=== PATIENT | female | born 1995 | race African-American/Black ===

== ENCOUNTER 2024-03-11 12:47 | Emergency (ER) | payer SELFPAY ==
[2024-03-11] VITALS (27 sets, daily range): BP systolic 112–141; BP diastolic 73–92; PULSE 82–105; RESP 12–23; TEMP 36.9; O2SAT 90–100
--- NOTE | 2024-03-11 12:50 | ECG_ITS ---
Test Date: 2024-03-11 13:07:38 Measurements Intervals [place] Rate: 88 P: 69 SD: 162 QRS: 64 QRSD: 90 T: 39 QT: 336 QTc: 407 Interpretive Statements SINUS RHYTHM WITH SINUS ARRHYTHMIA No previous ECG available for comparison Electronically Signed On 03-11-2024 13:35:54 CDT by Richard Stiles M.D.
[2024-03-11 13:06] LABS: BEDSIDEPREGUCG Negative (Negative)
[2024-03-11 13:13] LABS: Basophils Percent Auto 0.3 % (0.2-1.2); Eosinophils Percent Auto 0.1 % (0-4.4); Hematocrit 37.9 % (37.0-47.0); Hemoglobin 12.6 g/dL (12.0-15.0); Immature Granulocyte Absolute 0.02 K/mm3 (0.00-0.031); Immature Granulocyte Percent A 0.2 % (0-0.5); Lymphocytes Absolute Auto 2.42 K/mm3 (0.9-3.2); Lymphocytes Percent Auto 26.2 % (18.3-44.2); Mean Corpuscular HGB Conc 33.2 g/dl (32-36); Mean Corpuscular Hemoglobin 28.6 pg (26-34); Mean Corpuscular Volume 86.1 fl (80-100); Mean Platelet Volume 10.1 fl (7.4-10.4); Monocytes Absolute Auto 0.8 K/mm3 (0.1-0.6); Monocytes Percent Auto 8.6 % (2.6-8.5); Neutrophils Percent Auto 64.6 % (45.5-73.1); Platelet Count Result 289 k/mm3 (150-375); Red Cell Distribution Width 13.1 % (11.5-14.5); White Blood Count 9.3 K/mm3 (4.5-10.0)
[2024-03-11 13:16] LABS: Add Urine Microscopic? YES; Appearance Urine Clear (Clear); Bacteria Urine None Seen /hpf; Bilirubin Urine Negative (Negative); Blood Urine Negative (Negative); Color Urine Yellow (Yellow); Glucose Urine UA Negative (Negative); Ketones Urine 1+ mg/dL (Negative); Leukocyte Esterase Ur 2+ LEU/UL (Negative); Nitrate Urine Negative (Negative); Non Pathogenic Casts 0-2; Protein Urine Negative (Negative); RBC Urine 0-2 /hpf (0-2); Specific Grav Ur 1.022 (1.001-1.035); Squamous Epithelial Cell Urine None Seen /hpf (Few); Urobilinogen Urine 0.2 mg/dL (<2.0)
--- NOTE | 2024-03-11 13:21 | ED.GENADULT ---
HPI - General Adult General Chief complaint: Overdose Stated complaint: possible OD Time Seen by Provider: 03/11/24 12:51 History of Present Illness HPI narrative: 28-year-old female present to the emergency department for evaluation for an intentional ingestion with the intent of self-harm. Patient states that she had been drinking alcohol last night and due to increased life pressures and wanting to end the pain she states she took an unknown number ibuprofen. This morning with the patient woke up she called her mom and ultimately called EMS. Related Data Allergies Allergy/AdvReac Type Severity Reaction Status Date / Time No Known Allergies Allergy Verified 03/11/24 13:56 Review of Systems Review of Systems: All systems reviewed & are unremarkable except as noted in HPI and below PMFSH Social History Social History Substance use type: marijuana Exam Narrative: APPEARANCE: Well appearing, no pain, no distress, well-nourished. HEAD: normocephalic, atraumatic. EYES: PERRLA/EOMI, conjunctivae clear. NOSE: Normal no drainage EARS:TMS clear with good light reflex. THROAT: Pharynx clear, no exudate. NECK: Supple. No adenopathy, no masses. RESPIRATORY: Airway patent, respirations nonlabored. Clear to auscultation bilaterally, no rales, rhonchi, wheezing. CARDIOVASCULAR: Regular rate and rhythm without murmurs rubs or gallops. ABDOMINAL: Soft, nontender, nondistended, normal bowel sounds MUSCULOSKELETAL: Moves all extremities. Strength/ROM intact, No edema, No calf tenderness. NEURO: Alert. Cranial nerves II through XII intact. Grossly intact SKIN: Warm, dry. Normal Color PSYCHIATRIC: Tearful and remorseful affect Course Vital Signs Vital signs: Vital Signs Temperature 98.5 F 03/11/24 12:52 Pulse Rate 88 03/11/24 12:52 Respiratory Rate 16 03/11/24 12:52 Blood Pressure 112/73 03/11/24 12:52 Pulse Oximetry 95 03/11/24 12:52 Oxygen Delivery Room Air 03/11/24 12:52 Temperature 98.5 F 03/11/24 12:52 Pulse Rate 85 03/11/24 17:30 Respiratory Rate 15 03/11/24 17:30 Blood Pressure 130/84 03/11/24 16:01 Pulse Oximetry 100 03/11/24 17:30 Oxygen Delivery Room Air 03/11/24 12:52 Medical Decision Making MDM Narrative Medical decision making narrative: Patient is medically cleared to be evaluated by crisis. Patient is medically cleared for transport and inpatient psychiatric treatment as needed. Patient was evaluated by crisis and they felt that she could be discharged home. Vital Signs Vital Signs: Vital Signs Temperature 98.5 F 03/11/24 12:52 Pulse Rate 88 03/11/24 12:52 Respiratory Rate 16 03/11/24 12:52 Blood Pressure 112/73 03/11/24 12:52 Pulse Oximetry 95 03/11/24 12:52 Oxygen Delivery Room Air 03/11/24 12:52 Temperature 98.5 F 03/11/24 12:52 Pulse Rate 85 03/11/24 17:30 Respiratory Rate 15 03/11/24 17:30 Blood Pressure 130/84 03/11/24 16:01 Pulse Oximetry 100 03/11/24 17:30 Oxygen Delivery Room Air 03/11/24 12:52 Lab Data 03/11/24 13:01 03/11/24 13:01 Labs: Lab Results 03/11/24 03/11/24 03/11/24 Range/Units 13:01 13:04 14:49 WBC 9.3 (4.5-10.0) K/mm3 RBC 4.40 (4.2-5.4) M/mm3 Hgb 12.6 (12.0-15.0) g/dL Hct 37.9 (37.0-47.0) % MCV 86.1 (80-100) fl MCH 28.6 (26-34) pg MCHC 33.2 (32-36) g/dl RDW 13.1 (11.5-14.5) % Plt Count 289 (150-375) k/mm3 MPV 10.1 (7.4-10.4) fl Immature Gran % (Auto) 0.2 (0-0.5) % Neut % (Auto) 64.6 (45.5-73.1) % Lymph % (Auto) 26.2 (18.3-44.2) % [place] % (Auto) 8.6 H (2.6-8.5) % Eos % (Auto) 0.1 (0-4.4) % Baso % (Auto) 0.3 (0.2-1.2) % Lymph # (Auto) 2.42 (0.9-3.2) K/mm3 [place] # (Auto) 0.8 H (0.1-0.6) K/mm3 Eos # (Auto) 0.0 (0-0.3) K/mm3 Baso # (Auto) 0.0 (0.0-0.1) K/mm3 Abs Immat Gran (auto) 0.02 (0.00-0.031) K/mm3 Absolute Neuts (auto) 6.0 (
--- NOTE | 2024-03-11 13:22 | PC.NURSE ---
Spoke with [place] [facility], Nadine RN, about pt taking unknown amount of OTC Ibuprofen. States watch for S/S of nausea nad vomiting for moderate amount - obtunded and metabolic acidosis for large amount. If lab work ok and pt shows no signs and symptoms, observe for 2 hours.
[2024-03-11 13:25] LABS: Acetaminophen < 10 ug/mL (10-30); Alanine Aminotransferase 17 U/L (6-35); Albumin Level 4.5 g/dL (3.5-5.1); Alkaline Phosphatase 63 U/L (38-126); Anion Gap 16 mmol/L (4-12); Aspartate Amino Transferase 28 U/L (14-36); Bilirubin,Total 0.5 mg/dL (0.2-1.3); Blood Urea Nitrogen 7 mg/dL (7-17); Calcium 9.3 mg/dL (8.4-10.2); Carbon Dioxide 16 mmol/L (22-30); Chloride 111 mmol/L (98-107); Estimated CRCL calculation 82 ml/min; Estimated Glomerular Filt Rate > 60; Ethanol 100 mg/dL (<10); Glucose 82 mg/dL (65-110); Potassium 3.3 mmol/L (3.4-5.0); Salicylate < 1.0 mg/dL (2-20); Sodium 143 mmol/L (137-145)
[2024-03-11 13:30] LABS: Amphetamine Screen Urine Negative (Negative); Barbiturate Screen Urine Negative (Negative); Benzodiazepines Screen Urine Negative (Negative); Cannabinoid Screen Urine Positive (Negative); Cocaine Screen Urine Negative (Negative); Methadone Screen Urine Negative (Negative); Opiate Screen Urine Negative (Negative); Phencyclidine Screen Urine Negative (Negative)
[2024-03-11 13:48] LABS: SARS-CoV-2 RNA PCR Negative (Negative)
[2024-03-11] MEDS: SODIUM CHLORIDE 0.9% IV 1,000 ML 999 ML IV CONT (13:56)
[2024-03-11 13:58] LABS: Thyroid Stimulating Hormone 0.428 uIU/mL (0.465-4.680)
[2024-03-11 15:11] LABS: Ethanol 80 mg/dL (<10)
--- NOTE | 2024-03-11 16:25 | PC.NURSE ---
Crisis here to evaluate.
--- NOTE | 2024-03-11 17:39 | PC.NURSE ---
Spoke with Minerva at [place] [facility] control, states case is closed
== END 2024-03-11 17:42 | disposition home or self-care (01) ==
PROVIDERS: Emergency Provider Emergency Medicine
DX: T39.312A Poisoning by propionic acid derivatives, intentional self-harm, initial encounter (principal); F32.A Depression, unspecified; Z11.52 Encounter for screening for COVID-19
CPT/HCPCS: 36415; 80053; 80143; 80179; 80307; 81001; 81025; 82077; 84443; 85025; 87086; 87635; 93005; 96360; 99284; J7030